=== PATIENT | male | born 1990 | race African-American/Black ===

== ENCOUNTER 2018-11-08 09:29 | Emergency (ER) | payer OTHER ==
[~2018-11-08] VITALS: Ht 167.6 cm; Wt 72.3 kg
--- NOTE | 2018-11-08 11:02 | REP ---
ULTRASOUND LEFT CALF SOFT TISSUES: Real-time sonographic evaluation of the left calf soft tissues performed to rule out a hematoma following reported injury. The left calf soft tissues demonstrate no evidence of fluid collection or focal hematoma. There is some mild nonspecific edema superficially. Electronically Signed by August De Anda MD 11/10/2018 12:56 P
[2018-11-08 11:33] VITALS: BP 107/68
== END 2018-11-08 11:36 | disposition home or self-care (01) ==
LOC: M ED 09:29
DX: S86.812A Strain of other muscle(s) and tendon(s) at lower leg level, left leg, initial encounter (principal); X58.XXXA Exposure to other specified factors, initial encounter; Y92.9 Unspecified place or not applicable; Y93.9 Activity, unspecified; Y99.9 Unspecified external cause status; Z77.098 Contact with and (suspected) exposure to other hazardous, chiefly nonmedicinal, chemicals; Z88.2 Allergy status to sulfonamides

== ENCOUNTER 2018-12-13 14:38 | Emergency (ER) | payer OTHER ==
[~2018-12-13] VITALS: Ht 165.1 cm; Wt 72.3 kg
[2018-12-13 14:38] VITALS: BP 121/60
[2018-12-13] MEDS ORDERED: ZITH1POW PO (15:40)
[2018-12-13 17:38] LABS: CHLAMYDIA DNA AMPLIFICATION POSITIVE (NEGATIVE); GC DNA AMPLIFICATION NEGATIVE (NEGATIVE)
== END 2018-12-13 16:22 | disposition home or self-care (01) ==
LOC: M ED 14:38
DX: Z20.2 Contact with and (suspected) exposure to infections with a predominantly sexual mode of transmission (principal); A74.9 Chlamydial infection, unspecified; Z88.2 Allergy status to sulfonamides

== ENCOUNTER 2019-04-04 20:36 | Emergency (ER) | payer OTHER ==
[~2019-04-04] VITALS: Ht 165.1 cm; Wt 72.3 kg
[~2019-04-04 20:36] MED LIST: ZITH1POW PO
[2019-04-04 22:30] LABS: INFLUENZA A AMPLIFICATION NEGATIVE (NEGATIVE); INFLUENZA B AMPLIFICATION POSITIVE (NEGATIVE)
[2019-04-05 00:14] VITALS: BP 114/55
== END 2019-04-05 00:15 | disposition home or self-care (01) ==
LOC: M ED 20:36
DX: J10.1 Influenza due to other identified influenza virus with other respiratory manifestations (principal); Z88.2 Allergy status to sulfonamides